=== PATIENT | male | born 1950 | race Caucasian/White ===

== ENCOUNTER → 2017-06-16 | Outpatient (CLI) | payer MEDICARE ==
[2017-06-16 14:36] LABS: BUN 16 mg/dL (7-18)
[2017-06-16 14:43] LABS: GFR (ESTIMATED) 55 ML/MIN (>60)
== END ==
LOC: LAB 08:08
PROVIDERS: Family Medicine
DX: I10 Essential (primary) hypertension (principal); R73.9 Hyperglycemia, unspecified